=== PATIENT | male | born 1930 | race Caucasian/White ===

== ENCOUNTER 2018-06-29 15:17 | Inpatient (IN) ==
[2018-06-29] MEDS ORDERED: NS 1,000 ML IV ONE (15:36)
--- NOTE | 2018-06-29 16:25 | Diag Imaging Result Doc PS360 ---
EXAM: CHEST-PORTABLE HISTORY: SOB TECHNIQUE: Single view of the chest was performed portably. COMPARISON: None. FINDINGS: There is marked shoulder deformity. Heart size is within normal limits. Scattered granulomata. There is increased density right perihilar region and right lower lobe which may be acute or chronic no effusion is appreciated. IMPRESSION: Prominent right perihilar and right basilar lung markings may represent acute or chronic infiltrate. Follow-up recommended. Electronically signed by Jessica Joshi 06/29/2018 4:23 PM
[2018-06-29 16:48] LABS: BASO# 0.01 X1000 (0.0-0.2); BASO% 0.1 % (0.0-0.8); EOS# 0.07 X1000 (0.0-0.7); EOS% 0.7 % (0.0-10.0); HEMATOCRIT 37.6 % (42.0-52.0); HEMOGLOBIN 11.4 g/dL (14.0-18.0); IMM GRAN# 0.02 X1000 (0.0-0.04); IMM GRAN% 0.2 % (0.0-0.5); LYMPH# 1.25 X1000 (1.2-3.4); LYMPH% 12.3 % (20.5-51.1); MCH 27.3 PG (27-31); MCHC 30.3 g/dL (33-37); MONO# 0.56 X1000 (0.11-0.59); MONO% 5.5 % (1.7-9.3); MPV 9.7 FL (7.4-10.4); NEUT# 8.24 X1000 (1.4-6.5); NEUT% 81.2 % (42.2-75.2); PLT 396 X1000 (130-400); RBC 4.18 XMIL (4.7-6.1); RDW 14.2 % (11.5-14.5); WBC 10.15 X1000 (4.8-10.8)
[2018-06-29 17:13] LABS: AGAP 9; ALBUMIN 2.8 g/dL (3.5-5.0); ALKALINE PHOSPHATASE 89 U/L (32-122); BUN 15 mg/dL (8-22); CALCIUM 9.2 mg/dL (8.8-10.2); CHLORIDE 96 mmol/L (98-107); COSMO 281; CREATININE 0.6 mg/dL (0.7-1.2); ESTIMATED GFR > 60; GLUCOSE 109 mg/dL (70-104); GOT 17 U/L (10-34); GPT 10 U/L (10-44); POTASSIUM 3.5 mmol/L (3.5-5.1); SODIUM 140 mmol/L (136-145); TCO2 35 mmol/L (25-35); TOTAL PROTEIN 7.2 g/dL (6.3-8.3)
--- NOTE | 2018-06-29 17:23 | PROVIDER DOCUMENTATION ---
This chart was entered by Anita Arguello Scribe, acting as scribe for Woo Sr MD. HPI-General Adult - General Chief Complaint: General Adult Stated Complaint: FAILURE TO THRIVE Time Seen by Provider: 06/29/18 15:25 Source: patient - History of Present Illness -Gen Adult Nature of Presenting Problems: Patient is a 88 year old male who presents to the ED with weakness and loss of appetite. Patient states symptoms have been present for 3 weeks. 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 Patient denies pain. Location of Pain/Injury: reports: none Pain Radiation: reports: no radiation Quality of Pain: reports: none Severity: reports: mild Onset/Duration: reports: other (3 weeks) Timing: reports: still present, getting worse Context/Activities at Onset: reports: light activity Modifying Factors: improves with: nothing Associated Symptoms: reports: loss of appetite, weakness Similar Symptoms Previously?: Yes (present for 3 weeks) Recently seen or treated by another doctor?: No Review of Systems - Adult - REVIEW OF SYSTEMS - ADULT Constitutional: reports: no symptoms reported Eyes: reports: no symptoms reported Ears, Nose, Mouth & Throat: reports: no symptoms reported Cardiovascular: reports: no symptoms reported Respiratory: reports: no symptoms reported Gastrointestinal: reports: poor appetite. denies: abdominal pain, diarrhea, nausea, vomiting Genitourinary: reports: no symptoms reported Musculoskeletal: reports: muscle weakness. denies: back pain, neck pain Integumentary: reports: no symptoms reported Neurological: reports: no symptoms reported Psychiatric: reports: no symptoms reported Endocrine: reports: no symptoms reported Hematologic/Lymphatic: reports: no symptoms reported Allergic/Immunologic: reports: no symptoms reported All Other Systems: Reviewed and Negative Past History - Adult - PAST MEDICAL HISTORY-ADULT Review of Records: reports: Nursing Assessment Review, Medications Reviewed, Social history reviewed & non-contributory. Major Childhood Illnesses: reports: denies history Cardiovascular: reports: denies history Respiratory: reports: denies history Gastrointestinal: reports: denies history Obstetrical/Gynecological: reports: denies history Genitourinary: reports: denies history Musculoskeletal: reports: denies history Neurological: reports: denies history Psychiatric: reports: denies history Endocrine/Immune: reports: denies history Other Conditions: reports: denies history - PRIOR SURGERIES/PROCEDURES Surgical/Procedure History: reports: reviewed, not pertinent - IMMUNIZATION STATUS Childhood Immunizations: See Nurse Assessment Flu Vaccine: See Nurse Assessment - FAMILY HISTORY Family History: reviewed, not pertinent - SOCIAL HISTORY Smoking: denies Substance Use: denies Living Situation: family Physical Exam-General - PHYSICAL EXAM-ADULT Initial Vital Signs Reviewed: Yes - CONSTITUTIONAL General Appearance: alert, no apparent distress, cachetic, thin - HEAD, EARS, NOSE, MOUTH & THROAT HENMT: other (dry mucous membranes) - RESPIRATORY Respiratory: chest non-tender, lungs clear, normal breath sounds - CARDIOVASCULAR Cardiovascular: normal peripheral pulses, tachycardia - GASTROINTESTINAL (ABDOMEN) Abdominal Exam: normal bowel sounds, non tender, soft - MUSCULOSKELETAL Extremity: normal inspection - SKIN Integumentary: normal color, normal turgor, warm/dry - NEUROLOGIC Neurologic: grossly normal - PSYCHIATRIC Psych/Mental Status: disheveled Progress - PLAN OF CARE/RESULTS Progress/Plan/Lab Results: Vital Signs - 8 hr 06/29/18 15:23 Temperature 98.3 F Pulse Rate 110 H Respiratory Rate 24 Blood Pressure 127/088 O2 Sat by Pulse Oximetry 94 L Result Diagrams: 06/29/18 16:25 06/29/18 16:25 - XRAY 1 XRAY Study: Chest Impression: See EMR Report (EXAM: CHEST-PORTABLE HISTORY: SOB TECHNIQUE: Single view of the chest was performed portably. COMPARISON: None. FINDINGS : There is marked shoulder deformity. Heart size is within normal limits. Scattered granulomata. There is increased density right perihilar region and right lower lobe which may be acute or chronic no effusion is appreciated. IMPRESSION: Prominent right perihilar and right basilar lung markings may represent acute or chronic infiltrate. Follow-up recommended. Electronically signed by eJssica Joshi 06/29/2018 4:23 PM 06/29/18 1393 Interpreting Physician: Jsesica Joshi MD Dictated Date/Time: 06/29/18 1621 cc: Woo Sr MD;) - CONSULTS/PCP/HOSPITALIST Notification #1 *Consult/PCP/Hospitalist*: SANDEE Patiño for Hospitalist Time Discussed: 17:19 (Dr. Rader accepted admit) Reason/Comments: Dr. Sr consulted with Kaylyn about patient Consult Disposition: Will see in ED, Admit Departure - Departure Date of Disposition Decision: 06/29/18 Time of Disposition Decision: 17:15 DIAGNOSIS: Generalized weakness Disposition: HOME 01 Certified Medical Emergency: Emergent Condition: Stable Additional Freetext Instructions: ED Follow Up Instructions: You have been treated by a care provider in the Emergency Department. These instructions are being provided to you so you can have an understanding of how to care for yourself upon discharge. Upon discharge from the Emergency Department, you are responsible for making arrangements for follow-up care by a physician of your choice. Take all prescribed medications as directed. Return to the Emergency Department immediately for any new or worsening symptoms. You may call the Physician Referral phone number at [phone] to obtain a list of Physicians who are taking new patients. - Critical Care Note This patient required my direct & personal management of CC.: No Attestation - Physician/ JADEN Attestation Patient care was provided by Advanced Practice Provider:: No The physician spent face to face time with patient:: Yes Advanced Practice Provider documentation review:: Supervising physician onsite and consulted in the evaluation and care of this patient. The physician did have a face to face encounter with the patient. This chart was documented by the indicated scribe, (Anita Arguello Scribe) and accurately reflects the services I performed and decisions made by me, Woo Sr MD, as attested by the provider's signature.
[2018-06-29] MEDS ORDERED: ZOFRAN IV PRN (17:58)
[2018-06-29 18:44] LABS: BILIRUBIN URINE NEGATIVE (NEGATIVE); BLOOD URINE 3+ (NEGATIVE); CLARITY VERY CLOUDY (CLEAR); COLOR YELLOW; GLUCOSE URINE NEGATIVE (NEGATIVE); KETONE URINE TRACE mg/dL (NEGATIVE); LEUKOCYTES URINE 2+ (NEGATIVE); NITRITE URINE POSITIVE (NEGATIVE); PH URINE 6.5; PROTEIN URINE 1+(30 mg/dL) mg/dL (NEGATIVE); UROBILINOGEN URINE 4 mg/dL
[2018-06-29] MEDS ORDERED: ZITHROMAX PO ONE (18:51)
[2018-06-29 18:55] LABS: URINE BACTERIA 2+ /HFP; URINE RBC TNTC /HPF (<10); URINE WBC TNTC /HPF (<10)
[2018-06-29 18:56] LABS: URINE CAST NONE SEEN /LPF; URINE CRYSTAL NONE SEEN /HPF; URINE EPITHELIAL CELLS <10 /HPF (<10); URINE SOURCE CLEAN CATCH; URINE YEAST NONE SEEN /HPF
[2018-06-29] MEDS: ROCEPHIN 1 GM in NS 50 ML IV SCH (19:48)
[2018-06-29] MEDS: NON-FORMULARY MED PO SCH (20:29)
[2018-06-29] MEDS ORDERED: CLINORIL PO SCH (21:00)
[2018-06-29] MEDS: NS 1,000 ML IV SCH (21:54)
[2018-06-29] MEDS: TYLENOL WITH CODEINE #3 PO PRN (23:09)
[2018-06-30 06:58] LABS: HEMATOCRIT 32.8 % (42.0-52.0); HEMOGLOBIN 9.6 g/dL (14.0-18.0); MCH 26.8 PG (27-31); MCHC 29.3 g/dL (33-37); MCV 91.6 FL (81-99); MPV 9.8 FL (7.4-10.4); RBC 3.58 XMIL (4.7-6.1); WBC 6.83 X1000 (4.8-10.8)
[2018-06-30 07:20] LABS: AGAP 7; ALBUMIN 2.5 g/dL (3.5-5.0); ALKALINE PHOSPHATASE 77 U/L (32-122); BUN 12 mg/dL (8-22); CALCIUM 8.5 mg/dL (8.8-10.2); CHLORIDE 103 mmol/L (98-107); COSMO 283; CREATININE 0.5 mg/dL (0.7-1.2); ESTIMATED GFR > 60; GLUCOSE 98 mg/dL (70-104); GOT 11 U/L (10-34); GPT 7 U/L (10-44); POTASSIUM 4.4 mmol/L (3.5-5.1); SODIUM 142 mmol/L (136-145); TCO2 32 mmol/L (25-35); TOTAL PROTEIN 5.6 g/dL (6.3-8.3)
[2018-06-30 11:28] LABS: IRON SATURATION 16 %; TIBC 142 ug/dL; TOTAL IRON 23 ug/dL (53-167); UNBOUND IRON 119 ug/dL (112-346)
--- NOTE | 2018-06-30 11:29 | PROGRESS NOTE ---
DATE: 06/30/2018 SUBJECTIVE: The patient denies having any acute complaints. He seems to be in a good mood today. OBJECTIVE: Vital Signs: Temperature 97.4 degrees, pulse 92 per minute, respiratory rate 16 per minute, blood pressure 102/55, pulse oximetry 96% on room air. General: Patient is alert and oriented x3. He does not appear to be in any acute distress. He is hard of hearing. 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 Cardiovascular System: First and second heart sounds are audible without any murmurs or gallops. Respiratory System: No respiratory distress noted. Bilateral lung air entry is good without any rales or rhonchi. Gastrointestinal: Abdomen is soft and nontender on palpation. Normal bowel sounds are present. DIAGNOSTIC DATA: CBC shows hemoglobin of 9.6 and hematocrit 32.8. In comparison, his hemoglobin and hematocrit were 11.4 and 37.6 yesterday. Chemistry done this morning showed slightly low protein of 5.6 and albumin level of 2.5. Rest of the comprehensive metabolic panel is nondiagnostic. Urinalysis yesterday showed too numerous to count RBCs and too numerous to count WBCs. Chest x-ray done at the emergency room yesterday showed prominent right perihilar and right bibasilar lung markings which may represent acute or chronic infiltrate. IMPRESSION: An 88-year-old gentleman who has generalized weakness and has been found to have urinary tract infection with anemia. He also possibly has pneumonia. PLAN: Will continue with ceftriaxone intravenously along with IV fluids. I am going to obtain anemia workup, including B12/folate levels, iron studies and stool for Hemoccult. I am also going to have a repeat chest x-ray and CBC tomorrow. As far as his right ear local malignancy is concerned, that will be dealt with as outpatient by his PCP, Dr. Biswas. Further recommendations will be forthcoming. cc: Jackie Malik MD
[2018-06-30] MEDS: TYLENOL WITH CODEINE #3 PO PRN ×2 (12:08→20:05)
[2018-06-30] MEDS: NS 1,000 ML IV SCH (13:27)
--- NOTE | 2018-06-30 13:57 | HISTORY AND PHYSICAL ---
PLEASE DELETE MTDD
--- NOTE | 2018-06-30 14:44 | HISTORY AND PHYSICAL ---
The patient was seen by myself and Dr. Rader on 06/29/2018. CHIEF COMPLAINT: Fall. HISTORY OF PRESENT ILLNESS: This is an 88-year-old gentleman who presented to the emergency room with weakness, loss of appetite and a fall. He states that he was walking on crutches across his room the day before coming to the emergency room. He had coffee in his hand and he spilled the coffee. His crutch slipped and he fell to the ground. He was unable to get up and thankfully a neighbor came to check on him and called 911. On their arrival reportedly his living conditions were quite bad. He had no heat and running water therefore they called [facility]. On arrival to the emergency room the patient was awake and alert. He was unkempt. He complained of just increasing generalized weakness and loss of appetite. He states that it had been at least 3 weeks since food had tasted good and states he is only able to eat small bites at a time otherwise he felt like the food got stuck and he would have dry heaves. He does have a history of cancer to his right ear that is untreated and his ear was noted to have an ulcerated area with dried bloody scabbing around it. He stated it had been that way for a long, long time. PAST MEDICAL HISTORY: Restless legs syndrome, ear cancer untreated right ear. PAST SURGICAL HISTORY: Denies . SOCIAL HISTORY: He denies alcohol, tobacco or illicit drug use. ALLERGIES: No known drug allergies. HOME MEDICATIONS: Sulindac 150 mg p.o. daily. REVIEW OF SYSTEMS: Discussed with the patient with pertinent positives stated in the HPI. He denies any syncope, dizziness, chest pain, palpitations, any shortness of breath , PND, orthopnea, any nausea, vomiting, diarrhea, constipation, black or bloody vomitus or stools , hematuria, dysuria, frequency, urgency. PHYSICAL EXAMINATION: GENERAL: This is an 88-year-old gentleman who is lying in the stretcher in the emergency room in no distress. VITAL SIGNS: Blood pressure is 127/88 with a heart rate of 105, respirations are 20, temperature is 98.3 degrees with O2 saturation 94 to 100 percent. HEENT: Pupils are equal, round, react to light. EOMs are intact. Sclerae are anicteric. Head is normocephalic, atraumatic. Mucous membranes are dry. NECK: Supple with trachea midline. CARDIOVASCULAR: Regular rate and rhythm. He is tachycardic. Peripheral pulses are palpable x4 extremities. PULMONARY: Breath sounds are clear with no increased work of breathing noted GASTROINTESTINAL: Abdomen is soft, nontender, nondistended with bowel sounds in all 4 quadrants. NEUROLOGIC: He is alert and oriented x3. SKIN: Warm and dry. He does have an area of chronic ulceration to his right ear secondary to reported malignancy. LABS: WBC is 10.1 with hemoglobin 11.4, hematocrit 37.6 and platelets of 396, 000. Sodium 140, potassium 3.5, BUN 15, creatinine 0.6 with a glucose of 109. Urinalysis is positive for nitrites, blood, too numerous to count red blood cells and white blood cells with 2+ bacteria. Urine culture and blood cultures are pending. His chest x-ray revealed prominent right perihilar and right basilar lung markings that may represent acute or chronic infiltrate. ASSESSMENT AND PLAN: 1. Urinary tract infection. Urine cultures are pending. He was given Rocephin in the emergency room which we will continue and further antibiotics will be culture driven. 2. Malnutrition. 3. Right basilar chronic infiltrate. Will continue Rocephin adding Zithromax daily and assess. 4. Reported dysphagia. Patient has tolerated full liquids well while in the emergency room. We will attempt a mechanical soft diet and evaluate further. We will add Ensure with meals. 5. Generalized weakness. Causes could be multifactorial. He does states he walks on crutches and that over time it had been getting a little harder to walk and over the past few weeks has been get harder to manipulate the crutches. He also was found to have a urinary tract infection and he has had malnutrition. consult physical therapy. 6. Will consult wound therapy regarding his ear. 7. [employer] for discharge planning. The patient states that he has family in [place] that he is sure would allow him to live with them if he can connect with them. We will notify [facility] [employer] [facility]. Further treatments pending hospital course. Dictated by SANDEE Mcneil for Domenic Gunn MD This chart was documented by, SANDEE Mcneil and accurately reflects the services performed, treatment plan and medical decisions as attested by the providers signature Domenic Gunn MD. cc: SANDEE Mcneil MD [facility]
[2018-06-30] MEDS: ZITHROMAX PO SCH (15:16)
[2018-06-30] MEDS: ROCEPHIN 1 GM in NS 50 ML IV SCH (18:44)
[2018-06-30] MEDS: NON-FORMULARY MED PO SCH (20:05)
[2018-07-01] MEDS: NS 1,000 ML IV SCH ×2 (03:15→18:28)
[2018-07-01] MEDS: TYLENOL WITH CODEINE #3 PO PRN ×2 (04:46→21:07)
[2018-07-01] MEDS ORDERED: VISINE OPH DROPS BOTH EYES PRN (05:08)
[2018-07-01 06:13] LABS: BASO# 0.01 X1000 (0.0-0.2); BASO% 0.1 % (0.0-0.8); EOS# 0.26 X1000 (0.0-0.7); EOS% 3.3 % (0.0-10.0); HEMATOCRIT 33.3 % (42.0-52.0); HEMOGLOBIN 9.8 g/dL (14.0-18.0); IMM GRAN# 0.02 X1000 (0.0-0.04); IMM GRAN% 0.3 % (0.0-0.5); LYMPH# 1.63 X1000 (1.2-3.4); LYMPH% 20.4 % (20.5-51.1); MCH 26.9 PG (27-31); MCHC 29.4 g/dL (33-37); MCV 91.5 FL (81-99); MONO# 0.45 X1000 (0.11-0.59); MONO% 5.6 % (1.7-9.3); MPV 9.7 FL (7.4-10.4); NEUT# 5.61 X1000 (1.4-6.5); NEUT% 70.3 % (42.2-75.2); PLT 305 X1000 (130-400); RBC 3.64 XMIL (4.7-6.1); RDW 14.1 % (11.5-14.5); WBC 7.98 X1000 (4.8-10.8)
--- NOTE | 2018-07-01 07:17 | Diag Imaging Result Doc PS360 ---
EXAM: CHEST-PORTABLE HISTORY: Pneumonia TECHNIQUE: Portable chest single view COMPARISON: 06/29/2018 FINDINGS: The lungs are hyperexpanded. No cardiomegaly. Dense infiltrates are present in the mediastinal and right base. There are scattered granuloma. No pleural effusions identified. 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 IMPRESSION: No interval improvement in the right lung infiltrates. Electronically signed by Kade Sims 07/01/2018 7:15 AM
[2018-07-01 07:52] LABS: EOS 2 % (1-10); LYMPHS 20 % (21-51); MONO 3 % (1-9); SEGS 75 % (42-75)
[2018-07-01] MEDS: ZITHROMAX PO SCH (08:44)
--- NOTE | 2018-07-01 11:26 | PROGRESS NOTE ---
DATE: 07/01/2018 SUBJECTIVE: The patient denies having any acute complaints this morning. OBJECTIVE: Vital Signs: Temperature 98 degrees, pulse 88 per minute, respiratory rate 22 per minute, blood pressure 109/58, pulse oximetry 96% on room air. General: Patient is alert and oriented x3. He does not appear to be in any acute distress. Cardiovascular System: First and second heart sounds are audible without any murmurs or gallops. Respiratory System: No respiratory distress noted. Bilateral lung air entry is good without any rales or rhonchi. Gastrointestinal System: Abdomen is soft and nondistended. Normal bowel sounds are present. Skin: Right ear ulcer is present that has been diagnosed as having local malignancy as per patient. DIAGNOSTIC DATA: CBC shows stable hemoglobin and hematocrit of 9.8 and 33.3. Rest of the CBC is nondiagnostic. Urine culture has grown Enterobacter species that is widely sensitive to different antibiotics, including ceftriaxone the patient has been receiving. IMPRESSION: 1. Urinary tract infection secondary to Enterobacter species. 2. Pneumonia. 3. Anemia. That is stable. PLAN: The patient will be kept on ceftriaxone along with azithromycin IV, and we are going to continue with IV fluids as well. He does have local malignancy of his right ear skin, for which we are going to obtain ENT consultation on Tuesday. cc: Jackie Malik MD
[2018-07-01] MEDS: ROCEPHIN 1 GM in NS 50 ML IV SCH (18:28)
[2018-07-01 21:03] LABS: OCCULT BLOOD 1 NEGATIVE (NEGATIVE)
[2018-07-01] MEDS: NON-FORMULARY MED PO SCH (21:07)
[2018-07-02 07:14] LABS: EOS# 0.31 X1000 (0.0-0.7); EOS% 4.1 % (0.0-10.0); HEMATOCRIT 32.9 % (42.0-52.0); HEMOGLOBIN 9.7 g/dL (14.0-18.0); LYMPH# 1.53 X1000 (1.2-3.4); LYMPH% 20.3 % (20.5-51.1); MCH 26.9 PG (27-31); MCHC 29.5 g/dL (33-37); MCV 91.1 FL (81-99); MONO# 0.32 X1000 (0.11-0.59); MONO% 4.2 % (1.7-9.3); MPV 9.8 FL (7.4-10.4); NEUT# 5.39 X1000 (1.4-6.5); NEUT% 71.4 % (42.2-75.2); PLT 298 X1000 (130-400); RBC 3.61 XMIL (4.7-6.1); RDW 14.1 % (11.5-14.5); WBC 7.55 X1000 (4.8-10.8)
[2018-07-02 07:32] LABS: AGAP 7; BUN 9 mg/dL (8-22); CALCIUM 8.3 mg/dL (8.8-10.2); CHLORIDE 106 mmol/L (98-107); COSMO 283; CREATININE 0.4 mg/dL (0.7-1.2); ESTIMATED GFR > 60; GLUCOSE 89 mg/dL (70-104); SODIUM 143 mmol/L (136-145); TCO2 30 mmol/L (25-35)
[2018-07-02 07:50] LABS: LYMPHS 18 % (21-51); SEGS 73 % (42-75)
[2018-07-02 07:51] LABS: EOS 4 % (1-10); MONO 5 % (1-9)
[2018-07-02] MEDS: ZITHROMAX PO SCH (09:30)
[2018-07-02] MEDS: NS 1,000 ML IV SCH ×2 (09:30→22:51)
[2018-07-02] MEDS: FOLIC ACID PO SCH (09:31)
[2018-07-02] MEDS: CYANOCOBALAMIN IM SCH (09:31)
[2018-07-02] MEDS: TYLENOL WITH CODEINE #3 PO PRN ×2 (09:31→18:07)
--- NOTE | 2018-07-02 15:11 | PROGRESS NOTE ---
DATE: 07/02/2018 SUBJECTIVE: Patient denies having any acute complaints this morning. OBJECTIVE: Vital Signs: Temperature 98.5 degrees, pulse 98 per minute, respiratory rate 18 per minute, blood pressure 109/57, and pulse ox 95% on room air. General: Patient is alert and oriented x3. He does not appear to be in any acute distress. Cardiovascular: First and second heart sounds are audible without any murmurs or gallops. Respiratory: No respiratory distress noted. Bilateral lung air entry is moderately decreased but there are no rales or rhonchi present on auscultation. Gastrointestinal: Abdomen is soft and nondistended. Normal bowel sounds are present. DIAGNOSTIC DATA: CBC shows hemoglobin of 9.7 and hematocrit 32.9. This is stable when compared to his previous labs. Basic metabolic panel is nondiagnostic. Vitamin B12 levels were noted to be low at 203. Folate levels were found to be low at 4.7 as well. IMPRESSION: 1. Pneumonia. 2. Urinary tract infection. 3. 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 4. Right ear skin cancer. PLAN: We are going to continue with ceftriaxone along with azithromycin for pneumonia, as well as urinary tract infection. I have added folate and vitamin B12 supplementation because of his deficiency. An ENT consultation has been requested for tomorrow morning with Dr. Villanueva for further assistance in his right ear skin cancer. Further recommendations will be given as per hospital course. cc: Jackie Malik MD
[2018-07-02] MEDS: ROCEPHIN 1 GM in NS 50 ML IV SCH (18:07)
[2018-07-02] MEDS: NON-FORMULARY MED PO SCH (20:57)
[2018-07-02] MEDS: MIRAPEX PO SCH (20:57)
[2018-07-03] MEDS: TYLENOL WITH CODEINE #3 PO PRN (03:31)
--- NOTE | 2018-07-03 06:24 | Diag Imaging Result Doc PS360 ---
EXAM: CHEST-PORTABLE HISTORY: Pneumonia TECHNIQUE: Portable chest single view COMPARISON: 07/01/2018 FINDINGS: The lungs are well expanded. The heart is not enlarged. The vessels are not distended. A small infiltrate remains in the mid right lung. There are also minimal increased markings in the left lung base. No effusion identified. There are scattered granuloma. IMPRESSION: Slight interval improvement. Electronically signed by Kade Sims 07/03/2018 6:22 AM
[2018-07-03] MEDS: ZITHROMAX PO SCH (09:32)
[2018-07-03] MEDS: CYANOCOBALAMIN IM SCH (09:32)
[2018-07-03] MEDS: FOLIC ACID PO SCH (09:33)
--- NOTE | 2018-07-03 16:36 | PROGRESS NOTE ---
DATE: 07/03/2018 SUBJECTIVE: He is looking okay. He is having a lot of bleeding associated with his right ear. OBJECTIVE: Vital signs: Blood pressure 141/75, heart rate 103, respiratory rate 18, temperature 98.2 degrees, 97% on room air. Cardiovascular: Regular rate and rhythm. Pulmonary: Bilateral breath sounds. Clear to auscultation. Gastrointestinal: Soft, nontender, nondistended. Bowel sounds are positive. DIAGNOSTIC DATA: White count is 7, hemoglobin 9, hematocrit 32, platelets 298,000. Basic was normal. PROBLEM LIST: 1. Pneumonia. He is on Rocephin and azithromycin. He has been on those for about 4 to 5 days. He seems to be doing a little bit better. Chest x-ray looks a little bit better. 2. Urinary tract infection (UTI). He has an Enterobacter UTI which is sensitive to most things, including Rocephin, so he seems to be stable there. 3. He has got a right ear, I would say, mass consistent with pain. In any case, ENT has been consulted for evaluation, and we will continue to follow closely. DISPOSITION: Pending clinical status. He is really adamant about going home, but I am not sure if he can really manage that currently. Physical Therapy is working with him. He says he has not had physical therapy, but they saw him today, but he is refusing physical therapy, and he did not tell me that. Basically, I mean, he wants me to release him so he can get driven to [place] where there is family take care of him, but right now, I do not even think he is stable to get up and walk on his own. He is going to have to prove that he can get up and around before we decide to transfer him so we will see how things go. cc: Suraj Carver MD
[2018-07-03] MEDS: ROCEPHIN 1 GM in NS 50 ML IV SCH (18:13)
[2018-07-03] MEDS: MIRAPEX PO SCH (21:57)
[2018-07-03] MEDS: NON-FORMULARY MED PO SCH (21:57)
[2018-07-04 07:02] LABS: BASO# 0.01 X1000 (0.0-0.2); BASO% 0.1 % (0.0-0.8); EOS# 0.32 X1000 (0.0-0.7); EOS% 3.9 % (0.0-10.0); HEMOGLOBIN 10.4 g/dL (14.0-18.0); IMM GRAN# 0.02 X1000 (0.0-0.04); IMM GRAN% 0.2 % (0.0-0.5); LYMPH# 1.41 X1000 (1.2-3.4); LYMPH% 17.2 % (20.5-51.1); MCH 27.2 PG (27-31); MCHC 30.6 g/dL (33-37); MONO# 0.39 X1000 (0.11-0.59); MONO% 4.8 % (1.7-9.3); MPV 9.5 FL (7.4-10.4); NEUT# 6.04 X1000 (1.4-6.5); NEUT% 73.8 % (42.2-75.2); PLT 244 X1000 (130-400); RBC 3.82 XMIL (4.7-6.1); RDW 14.4 % (11.5-14.5); WBC 8.19 X1000 (4.8-10.8)
[2018-07-04 07:19] LABS: AGAP 10; BUN 8 mg/dL (8-22); CALCIUM 8.4 mg/dL (8.8-10.2); CHLORIDE 99 mmol/L (98-107); COSMO 275; CREATININE 0.4 mg/dL (0.7-1.2); ESTIMATED GFR > 60; GLUCOSE 91 mg/dL (70-104); POTASSIUM 3.6 mmol/L (3.5-5.1); SODIUM 139 mmol/L (136-145); TCO2 30 mmol/L (25-35)
[2018-07-04] MEDS: FOLIC ACID PO SCH (10:18)
[2018-07-04] MEDS: CYANOCOBALAMIN IM SCH (10:18)
[2018-07-04] MEDS: ZITHROMAX PO SCH (10:18)
[2018-07-04] MEDS ORDERED: CALAMINE LOTION TOP PRN (10:38)
[2018-07-04] MEDS: ROCEPHIN 1 GM in NS 50 ML IV SCH (18:00)
--- NOTE | 2018-07-04 18:44 | PROGRESS NOTE ---
DATE: 07/04/2018 SUBJECTIVE: Patient has no focal complaints. OBJECTIVE: Blood pressure 131/63, heart rate of 102, respiratory rate 20, temperature 98.1 degrees, 100% on room air.Cardiovascular: Regular rate and rhythm. Pulmonary: Bilateral breath sounds. Clear to auscultation. GI: Soft, nontender, nondistended. Bowel sounds are positive. PROBLEM LIST: 1. Pneumonia. He is on Rocephin and azithromycin I am going to say day 5. Seems to be doing okay from that standpoint. 2. Enterobacter urinary tract infection which is sensitive to Rocephin. Will continue treatment. 3. Right ear lesion with concern over possible skin squamous cell cancer. We will continue to monitor. ENT consult is pending. 4. Disposition. He is really interested in trying to get to [place], he is not from there but he does have family there that potentially can take care of him but he is not really realistic about getting there. We discussed the option of transfer. I think I am going to reach out to the family and see what the plan is. I do not think the family is quite cognizant of how weak he is and he may benefit from rehab here locally. He literally thinks one of his plans is to be discharged to a rental van with a mattress in the back end, I told him that was not a safe option for him so we will see how he does but I anticipate the safest is to rehab, get a little bit more strength and then he can proceed with relocation. cc: Suraj Carver MD
[2018-07-04] MEDS: MIRAPEX PO SCH (20:40)
[2018-07-04] MEDS: NON-FORMULARY MED PO SCH (20:40)
[2018-07-05] MEDS: ZITHROMAX PO SCH (09:22)
[2018-07-05] MEDS: CYANOCOBALAMIN IM SCH (09:22)
[2018-07-05] MEDS: FOLIC ACID PO SCH (09:26)
[2018-07-05] MEDS ORDERED: XYLOCAINE-MPF 1% INJ ONE (17:20)
[2018-07-05] MEDS ORDERED: XYLOCAINE-MPF 2% ONE (17:36)
--- NOTE | 2018-07-05 18:12 | PROGRESS NOTE ---
DATE: 07/05/2018 SUBJECTIVE: Patient has no major complaints. OBJECTIVE: Vital signs: Blood pressure 110/60, heart rate of 94, respiratory rate of 18, temperature 97.9 degrees, 98% on room air. Cardiovascular: Regular rate and rhythm. Pulmonary: Bilateral breath sounds. Clear to auscultation. GI: Soft, nontender. HEENT: His ear at the base of the pinna where it connects to the head has a deep cleft in it, like it has been avulsed. I would say pretty much the entire portion of the pinna is from the scalp and he has purulent drainage from his external auditory meatus. It looks like at least 30 to 40% of the pinna is from the scalp. LABORATORY DATA: No new data today. PROBLEM LIST: 1. 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 I am not sure if he is going to need surgery. I do agree with skin biopsy. I have discussed with Dr. Ibanez who is coming to evaluate and recommend wound care and will try to get a skin biopsy. 2. Pneumonia. Continue Rocephin and azithromycin. This is day 6. 3. Enterobacter urinary tract infection. He is on Rocephin, day 6. 4. Disposition. The patient initially handed me the phone to talk to an ambulance service from [place] to advise them on when they could pick him up. We discussed that was not a viable option. Apparently, he is under custody of [facility], is unsafe to go home. He is not able to take care of himself. So the plan now is to discharge to rehab. He has acquiesced to that. We will continue to follow. We will continue to monitor, pending recommendations. cc: Suraj Carver MD
[2018-07-05] MEDS: ROCEPHIN 1 GM in NS 50 ML IV SCH (19:30)
[2018-07-05] MEDS ORDERED: NEOSPORIN OINTMENT PACKET TOP STA (20:27)
[2018-07-05] MEDS: MIRAPEX PO SCH (23:13)
[2018-07-05] MEDS: TYLENOL WITH CODEINE #3 PO PRN (23:13)
[2018-07-05] MEDS: NON-FORMULARY MED PO SCH (23:14)
[2018-07-05] MEDS ORDERED: CALMOSEPTINE OINTMENT TOP PRN (23:20)
[2018-07-06] MEDS: ZITHROMAX PO SCH (10:08)
[2018-07-06] MEDS: CYANOCOBALAMIN IM SCH (10:09)
[2018-07-06] MEDS: FOLIC ACID PO SCH (10:09)
--- NOTE | 2018-07-06 14:22 | PROGRESS NOTE ---
DATE: 07/06/2018 SUBJECTIVE: When I saw him, he was just sleeping, sitting upright in bed. No complaints. He wanted his dressing off. OBJECTIVE: Vital signs: Blood pressure 119/50, heart rate of 84, respiratory rate 16, temperature was afebrile. Cardiovascular: Regular rate and rhythm. Pulmonary : Bilateral breath sounds. Clear to auscultation Gastrointestinal: Soft, nontender, nondistended. Bowel sounds were positive. Extremity: No clubbing or cyanosis. Lymphatic: No peripheral edema. Neurological: Nonfocal. Skin: Again he has a detached ear, which is being kept with the Fred dressing. PROBLEM LIST: 1. Right ear lesion. Unclear if it is cancer, but he does have an avulsion of the top portion of his pinna, but it has been that way for several weeks now. Dr. Ibanez thankfully (I appreciate his input and care) has performed a skin biopsy and recommended dressing. He is also recommending a higher level of care for treatment that I do not have, so we will discuss the case with [facility]. 2. Pneumonia. He is on Rocephin, azithromycin day 7. 3. Enterobacter urinary tract infection (UTI). He is on Rocephin day 7, which I think will probably complete his course. DISPOSITION: He will need placement, but right now, we may have to deal with his ear issues. I will discuss the case with [facility] and see what they think about the case. cc: Suarj Carver MD MTDD
[2018-07-06] MEDS: TYLENOL WITH CODEINE #3 PO PRN (15:19)
[2018-07-06] MEDS: ROCEPHIN 1 GM in NS 50 ML IV SCH (19:18)
[2018-07-06] MEDS: NON-FORMULARY MED PO SCH (21:42)
[2018-07-06] MEDS: MIRAPEX PO SCH (21:43)
[2018-07-07 06:38] LABS: EOS% 3.4 % (0.0-10.0); HEMATOCRIT 32.7 % (42.0-52.0); HEMOGLOBIN 9.6 g/dL (14.0-18.0); IMM GRAN# 0.01 X1000 (0.0-0.04); IMM GRAN% 0.1 % (0.0-0.5); LYMPH# 1.54 X1000 (1.2-3.4); LYMPH% 17.2 % (20.5-51.1); MCH 26.8 PG (27-31); MCHC 29.4 g/dL (33-37); MCV 91.3 FL (81-99); MONO# 0.51 X1000 (0.11-0.59); MONO% 5.7 % (1.7-9.3); NEUT# 6.58 X1000 (1.4-6.5); NEUT% 73.6 % (42.2-75.2); PLT 254 X1000 (130-400); RBC 3.58 XMIL (4.7-6.1); RDW 15.1 % (11.5-14.5); WBC 8.94 X1000 (4.8-10.8)
[2018-07-07 06:55] LABS: AGAP 8; BUN 14 mg/dL (8-22); CALCIUM 8.8 mg/dL (8.8-10.2); CHLORIDE 100 mmol/L (98-107); COSMO 280; CREATININE 0.5 mg/dL (0.7-1.2); ESTIMATED GFR > 60; GLUCOSE 93 mg/dL (70-104); POTASSIUM 4.8 mmol/L (3.5-5.1); SODIUM 140 mmol/L (136-145); TCO2 32 mmol/L (25-35)
[2018-07-07] MEDS: VITAMIN B-12 PO SCH (09:06)
[2018-07-07] MEDS: FOLIC ACID PO SCH (09:06)
[2018-07-07] MEDS: ZITHROMAX PO SCH (09:06)
--- NOTE | 2018-07-07 20:55 | PROGRESS NOTE ---
DATE: 07/07/2018 SUBJECTIVE: He has no complaints. He is obsessed with going to [place]. I discussed with him his options. He would have to find a physician that is willing to take his case and a surgeon who is willing to operate on his ear. The local opportunities are [place] for which of course there are no beds. OBJECTIVE: Blood pressure 123/66, heart rate 103, respiratory rate 18, temperature 97.8 degrees, 98% on room air.Cardiovascular: Regular rate and rhythm. Pulmonary: Bilateral breath sounds clear to auscultation. GI: Soft, nontender, nondistended. Bowel sounds are positive. His right ear is still , but he has got some wicking in place. There is not a significant amount of drainage. He still has some serosanguineous drainage. ASSESSMENT: 1. Right ear avulsion with possible skin cancer. I am still waiting on a skin biopsy which I am not sure where that ended up. 2. Pneumonia. He is on Rocephin, azithromycin day 8. I hesitate to stop those, but I think he has probably completed a course. 3. Enterobacter UTI. Again, he has completed 8 days of antibiotics for that. I think we can also stop that. DISPOSITION: Again, I think we are looking at long-term is rehab. He wants to be closer to family, but I am not entirely sure how involved they are in his care. So, we will continue to follow closely. cc: Suraj Carver MD
[2018-07-07] MEDS: NON-FORMULARY MED PO SCH (21:00)
[2018-07-07] MEDS: MIRAPEX PO SCH (21:00)
[2018-07-08] MEDS: FOLIC ACID PO SCH (09:00)
[2018-07-08] MEDS: VITAMIN B-12 PO SCH (09:00)
[2018-07-08] MEDS ORDERED: VANCOMYCIN IV PER PHARMACY MISC SCH (12:00)
[2018-07-08] MEDS ORDERED: VANCOMYCIN 1 GM/NS 1 GM/250 ML IVPB IV ONE (14:00)
[2018-07-08] MEDS: NON-FORMULARY MED PO SCH (20:34)
[2018-07-08] MEDS: MIRAPEX PO SCH (20:34)
--- NOTE | 2018-07-09 00:22 | PROGRESS NOTE ---
DATE: 07/08/2018 SUBJECTIVE: The patient has no focal complaints except he is complaining of his feet. OBJECTIVE: Blood pressure is 110/54, heart rate of 91, respiratory rate 18, temperature 98.1 degrees, 98% on room air.Cardiovascular: Regular rate and rhythm. Pulmonary: Bilateral breath sounds. Clear to auscultation. GI: Soft, nontender, nondistended. Bowel sounds are positive. LABORATORY DATA: White count 8, hemoglobin and hematocrit 9 and 32, platelets 252,000. Basic was normal. PROBLEM LIST: 1. Right ear avulsion, skin cancer now methicillin-resistant Staphylococcus aureus positive infection, possibly an otitis, fluid was cultured from there. Will continue empiric antibiotics and wound care. 2. Pneumonia. He has completed 8 days of Rocephin and azithromycin, I think that this has stopped. 3. Enterobacter urinary tract infection. Again he has completed 8 days of Rocephin so that was stopped. 4. Severe generalized debilitating weakness. He cannot get up on his own. He also basically refuses physical therapy. Plan is to get him to rehab. He is a [employer] case, he is unable to take care of himself. The problem is we are not sure how to manage his ear surgically, local ear, nose and throat doctor recommending transfer to a higher center however, there were no beds at [facility]. We may have to decide on going to rehab for a bit before we talk about transferring elsewhere. cc: Suraj Carver MD
[2018-07-09 07:29] LABS: AGAP 7; BUN 13 mg/dL (8-22); CHLORIDE 98 mmol/L (98-107); COSMO 276; CREATININE 0.5 mg/dL (0.7-1.2); ESTIMATED GFR > 60; GLUCOSE 99 mg/dL (70-104); POTASSIUM 4.3 mmol/L (3.5-5.1); SODIUM 138 mmol/L (136-145); TCO2 33 mmol/L (25-35)
[2018-07-09 07:40] LABS: BASO# 0.01 X1000 (0.0-0.2); BASO% 0.1 % (0.0-0.8); EOS# 0.22 X1000 (0.0-0.7); EOS% 3.2 % (0.0-10.0); HEMATOCRIT 32.2 % (42.0-52.0); HEMOGLOBIN 9.8 g/dL (14.0-18.0); IMM GRAN# 0.01 X1000 (0.0-0.04); IMM GRAN% 0.1 % (0.0-0.5); LYMPH# 1.69 X1000 (1.2-3.4); LYMPH% 24.6 % (20.5-51.1); MCH 27.2 PG (27-31); MCHC 30.4 g/dL (33-37); MCV 89.4 FL (81-99); MONO# 0.44 X1000 (0.11-0.59); MONO% 6.4 % (1.7-9.3); MPV 10.6 FL (7.4-10.4); NEUT# 4.51 X1000 (1.4-6.5); NEUT% 65.6 % (42.2-75.2); PLT 262 X1000 (130-400); RDW 15.1 % (11.5-14.5); WBC 6.88 X1000 (4.8-10.8)
[2018-07-09 08:00] LABS: ANISOCYTOSIS OCCASIONAL; LYMPHS 18 % (21-51); MONO 8 % (1-9); SEGS 72 % (42-75)
[2018-07-09 08:01] LABS: HYPOCHROM OCCASIONAL
[2018-07-09] MEDS: VITAMIN B-12 PO SCH (09:33)
[2018-07-09] MEDS: FOLIC ACID PO SCH (09:33)
--- NOTE | 2018-07-09 18:40 | PROGRESS NOTE ---
DATE: 07/09/2018 SUBJECTIVE: Patient has no focal complaints. OBJECTIVE: Vital Signs: Blood pressure 107/52, heart rate of 101, respiratory rate of 14 Cardiovascular: Regular rate and rhythm. Pulmonary: Bilateral breath sounds. Clear to auscultation. Gastrointestinal: Soft, nontender, nondistended. Bowel sounds are positive. PROBLEM LIST: 1. Right ear avulsion, possible skin cancer with an MRSA cellulitis. He is on antibiotics, I think vancomycin. 2. Pneumonia. He has completed a course of Rocephin, azithromycin. 3. Enterobacter UTI. He has also completed a course of Rocephin. 4. Severe weakness. He also refuses to participate in PT. 5. Disposition: Plan is rehab. I have tried for several days to get him down to [facility] for evaluation of his ear. At this point, we are just going to continue wound care and likely pursue rehab if [facility] continues to be on diversion. I did speak to ENT at the facility who agreed that he was stable, they could assist in his care but they had, they were on diversion and had no beds. cc: Suraj Carver MD [facility]
[2018-07-09] MEDS: NON-FORMULARY MED PO SCH (21:48)
[2018-07-09] MEDS: MIRAPEX PO SCH (21:49)
[2018-07-10] MEDS: VITAMIN B-12 PO SCH (09:40)
[2018-07-10] MEDS: FOLIC ACID PO SCH (09:40)
[2018-07-10] MEDS: NON-FORMULARY MED PO SCH (21:18)
[2018-07-10] MEDS: MIRAPEX PO SCH (21:18)
--- NOTE | 2018-07-10 22:56 | PROGRESS NOTE ---
DATE: 07/10/2018 SUBJECTIVE: Patient has no new complaints. PHYSICAL: Patient is a frail elderly male who is in no respiratory distress. Temperature 97.7 degrees, pulse 100, respiratory 20, BP 119/64.HEENT: Normocephalic. Neck: Supple. CV: Regular rate. Chest: Clear nonlabored. Skin: Noted to have clean, dry intact bandage over his right ear. ASSESSMENT: 1. One right ear avulsion with methicillin-resistant Staphylococcus aureus cellulitis. 2. Pneumonia. 3. Enterobacter urinary tract infection . 4. Severe weakness. PLAN: Patient will need rehab. Currently there is no bed available at [facility]. Do not feel as though he has to be transferred hospital to hospital he certainly can go as outpatient. We will transition to rehab when bed is available and he can follow up outpatient with [facility]. cc: Mukund Recinos MD
[2018-07-11] MEDS ORDERED: VANCOMYCIN 700 MG in NS 250 ML IV SCH (02:00)
[2018-07-11] MEDS: VITAMIN B-12 PO SCH (08:57)
[2018-07-11] MEDS: FOLIC ACID PO SCH (08:57)
[2018-07-11] MEDS: NON-FORMULARY MED PO SCH (20:40)
[2018-07-11] MEDS: MIRAPEX PO SCH (20:40)
--- NOTE | 2018-07-11 22:33 | PROGRESS NOTE ---
DATE: 07/11/2018 SUBJECTIVE: Patient himself has no complaints. PHYSICAL: Vital Signs: Reviewed, temperature 97.3 degrees, pulse 102, respiratory 20, BP 120/63. General: Patient is currently in no distress. HEENT: Normocephalic. Neck: Supple. CV: Regular rate. Chest: Clear. Abdomen: Soft. Extremities: Moves all extremities. Right ear bandage is clean, dry and intact. ASSESSMENT: 1. Right ear avulsion with methicillin-resistant Staphylococcus aureus cellulitis. 2. Pneumonia. 3. Severe generalized weakness. PLAN: We will attempt transition patient rehab when bed is available. He can follow up outpatient with primary care or surgeon regarding his right ear. Uncertain if it is all infectious or may be cancerous cells. Will need to follow outpatient. cc: Mukund Recinos MD
[2018-07-12] MEDS: VITAMIN B-12 PO SCH (09:32)
[2018-07-12] MEDS: FOLIC ACID PO SCH (09:32)
[2018-07-12 14:24] VITALS: BP 127/67
--- NOTE | 2018-07-12 17:33 | DISCHARGE SUMMARY ---
ADMISSION DATE: 06/29/2018 DISCHARGE DATE: 07/12/2018 DIAGNOSES: 1. Enterobacter urinary tract infection. 2. MRSA right ear. 3. Pneumonia. 4. Severe weakness. 5. Questionable ear cancer to the right ear. DIAGNOSTICS: 1. Chest x-ray 06/29/2018 revealed prominent right perihilar and right basilar lung markings that may represent acute or chronic infiltrate 2. Chest x-ray 07/01/2018 revealed no improvement. 3. Chest x-ray 07/03/2018 revealed slight improvement in chest x-ray. 4. 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 5. Microbiology: Wound culture right ear revealed methicillin-resistant Staphylococcus aureus. 6. Blood cultures x 2 revealed no growth after 5 days. 7. Urine culture revealed Enterobacter. HOSPITAL COURSE: Mr. Quiñonez presented to the emergency room after having a fall. Thankfully, x- rays were negative.He did state that he has been on crutches for 10 years or greater. He did tell me on admission that he has been unable to walk, that he leans on the crutches and kind of drag his legs along. Due to living conditions, [facility] was called by EMS and they are following with the patient. He was found to have right basilar pneumonia for which he was given Rocephin and Zithromax. Urine culture revealed Enterobacter which thankfully was sensitive to Rocephin. Wound culture from his right ear grew MRSA cellulitis for which he received vancomycin. Wound care evaluated the patient and recommended to clean the wound with Bausch daily, apply silver, cover with a 4 x 4, which we have continued. Dr. Villanueva ENT evaluated the patient. A biopsy was obtained and pathology today reveals skin lesion with extensive hemorrhage, most of the tumor is necrotic and infarcted. A Gram stain shows gram- positive cocci, ulcerated and hemorrhagic epithelial neoplasm. He was evaluated by Physical Therapy. At first, he was very reluctant to participate due to right knee and right leg pain. He states this has been chronic for over 10 years, leading to his using crutches. The patient stated that he had cancer to his right ear. He states that he had no followup. When asked why, he just stated "I don't know." Culture ultimately grew out MRSA. Dr. Carver attempted to reach ENT at [facility]. They were on diversion and unable to accept the patient. It was recommended to treat with antibiotics and once infection is cleared, be re-evaluated by ENT. And a biopsy be retaken. DISCHARGE VITAL SIGNS: Blood pressure is 109/59, with a heart rate of 90, respirations 16, temperature 98 oral with room air sats 97%. DISCHARGE MEDICATIONS: Mirapex 0.25 p.o. at bedtime, Visine Eyedrops p.r.n., folic acid 1 mg p.o. daily, Clinoril 200 mg at bedtime, vitamin B12 1000 mcg daily, Bactrim DS 1 b.i.d. x 7 days. He is being discharged and transferred to rehab in stable condition. TIME SPENT: This is a greater than 30 minute discharge. Dictated by SANDEE Mcneil for Mukund Recinos MD This chart was documented by, SANDEE Mcneil and accurately reflects the services performed, treatment plan and medical decisions as attested by the providers signature Mukund Recinos MD. cc: SANDEE Mcneil MD [facility]PITALDemarcus
--- NOTE | 2018-07-13 05:20 | DISCHARGE SUMMARY ---
ADMISSION DATE: 06/29/2018 DISCHARGE DATE: 07/12/2018 ADDENDUM: Patient was seen and examined by myself. Full note dictated and discussed with nurse practitioner. Patient presented to the hospital with a right ear avulsion, subsequently grew MRSA cellulitis. He was placed on antibiotics. He will be discharged to rehab. He will need to follow up outpatient for further treatment as it is possible that he could have a skin cancer in this ear, although currently with the infection, the pathology was unable to fully discern that. cc: Mukund Recinos MD
== END 2018-07-12 20:04 | DRG 689 ==
LOC: P.ED 15:17 → P.MEDSURG 20:22 → SUATTDRO 20:22
PROVIDERS: ATTEND Family Medicine
CPT/HCPCS: 71010; 71045; 80048; 80053; 81001; 82270; 82550; 82607; 82746; 82948; 83540; 83550; 85025; 85027; 87040; 87070; 87077; 87088; 87186; 96365; 97140; 97161; 97530; 99285; A9270; J0696; J3370; J3420; J7030; J7050; XXXXX